=== PATIENT | female | born 1985 | race Two or more races ===

== ENCOUNTER 2020-04-14 13:27 | Emergency (ER) | payer OTHER ==
[~2020-04-14] VITALS: Ht 165.1 cm; Wt 78.0 kg
== END 2020-04-14 15:55 | disposition home or self-care (01) ==
LOC: ER 13:27
DX: S62.643A Nondisplaced fracture of proximal phalanx of left middle finger, initial encounter for closed fracture (principal); W21.4XXA Striking against diving board, initial encounter; W16.312A Fall into other water striking water surface causing other injury, initial encounter; Y93.89 Activity, other specified; Y92.098 Other place in other non-institutional residence as the place of occurrence of the external cause; Y99.8 Other external cause status